=== PATIENT | female | born 1995 ===

== ENCOUNTER 2017-11-04 23:14 | Emergency (ER) | payer BC ==
[2017-11-04 23:23] VITALS: BP 135/87; PULSE 84; RESP 16; TEMP 98.8; O2SAT 99
[2017-11-04 23:42] LABS: HCG,QUALITATIVE URINE NEGATIVE (NEGATIVE)
[2017-11-04 23:45] LABS: SQUAMOUS EPITHIAL 2 /hpf (0-5); URINE BACTERIA FEW (<OCC); URINE BILIRUBIN NEGATIVE (NEGATIVE); URINE BLOOD 3+ (NEGATIVE); URINE CLARITY Hazy (Clear); URINE COLOR Yellow (YELLOW); URINE GLUCOSE (UA) NORMAL (Normal); URINE PROTEIN NEGATIVE (NEGATIVE); URINE UROBILINOGEN NORMAL mg/dL (0.2-1.0)
[2017-11-04 23:49] LABS: URINE LEUKOCYTE ESTERASE 2+ Leu/uL (Negative)
--- NOTE | 2017-11-05 00:03 | C.PDOC ---
History Of Present Illness 22 yo female come in for evaluation of lower abdominal cramping pain associated with mild discomfort on urination and clear vaginal discharges developed since today AM. Otherwise, pt denies fever, chills, sore throat,m cough, abd. pain, N/ V, back pain, hematuria, denies recent unprotected sexual activity, no previous hx of STD. Ambulate to Ed for evaluation, not in any apparent distress. Time Seen by Provider: 11/04/17 23:21 Chief Complaint (Nursing): Female Genitourinary History Per: Patient Onset/Duration Of Symptoms: Gradual Past Medical History Reviewed: Historical Data, Nursing Documentation, Vital Signs Vital Signs: Last Vital Signs Temp 98.8 F 11/04/17 23:19 Pulse 84 11/04/17 23:19 Resp 16 11/04/17 23:19 BP 135/87 11/04/17 23:19 Pulse Ox 99 11/05/17 00:14 - Medical History PMH: Asthma Family History: States: No Known Family Hx - Social History Hx Tobacco Use: No Hx Alcohol Use: No Hx Substance Use: No Review Of Systems Except As Marked, All Systems Reviewed And Found Negative. Constitutional: Negative for: Fever, Chills ENT: Negative for: Throat Pain Respiratory: Negative for: Cough, Shortness of Breath Gastrointestinal: Negative for: Nausea, Vomiting, Abdominal Pain, Diarrhea Genitourinary: Positive for: Dysuria, Vaginal Discharge. Negative for: Frequency, Incontinence, Hematuria, Vaginal Bleeding, Pelvic Pain Musculoskeletal: Negative for: Back Pain Skin: Negative for: Rash Neurological: Negative for: Headache Physical Exam - Physical Exam Appears: Well, Non-toxic, No Acute Distress Skin: Normal Color, Warm, Dry, No Rash Head: Normacephalic Eye(s): bilateral: PERRL Nose: No Flaring, No Discharge Oral Mucosa: Moist, No Drooling Throat: No Erythema, No Drooling Neck: Trachea Midline, Supple Cardiovascular: Rhythm Regular Respiratory: Normal Breath Sounds Gastrointestinal/Abdominal: Soft, Tenderness (mild suprapubic tenderness), No Distention, No Guarding, No Rebound Back: No CVA Tenderness Pelvic: Vaginal Discharge (whithe thick), No Adnexal Tenderness Extremity: Normal ROM, No Deformity, No Swelling Neurological/Psych: Oriented x3, Normal Speech ED Course And Treatment - Laboratory Results Urine POC: Negative O2 Sat by Pulse Oximetry: 99 Pulse Ox Interpretation: Normal Progress Note: On re-evaluation, pt is afebrile, hemodynamicaly stable. Non- toxic. Tolerate Po well in ED. PulsEOx 99% RA. Neck: Supple, (-) meningeal sign . ENT: no acute findings. Lungs: CTA B/L, BS equal B/L. Abd: benig, (-) guarding, (-) rebound. back: (-) CVA tenderness . UA results review (+) WBC, RBC . Pt has clinical findings c/w UTI. Pt advised. ref. to f/u with PMD, [facility] in 2-3 days for re-evaluation. return to ED if any worsening or new changes. Disposition Counseled Patient/Family Regarding: Studies Performed, Diagnosis, Need For Followup, Rx Given - Disposition Referrals: [facility] [Outside] [facility] [Outside] Disposition: HOME/ ROUTINE Disposition Time: 00:03 Condition: STABLE Additional Instructions: Encourage fluids Take medication as prescribed Follow up with PMD, [facility] in 2-3 days for re-evaluation. return to ED if any worsening or new changes. Prescriptions: Fluconazole [Diflucan] 100 mg PO DAILY #3 tab Nitrofurantoin Macrocrystals [Macrobid] 1 cap PO BID #14 cap Instructions: Vulvovaginal Yeast Infection, Urinary Tract Infections in Adults Forms: [facility] (Vietnamese) Print Language: WELSH - Clinical Impression Clinical Impression: UTI (urinary tract infection), Vulvovaginal candidiasis
== END 2017-11-05 00:19 | disposition home or self-care (01) ==
LOC: C.ER 23:14
DX: N39.0 Urinary tract infection, site not specified (principal); B37.3 Candidiasis of vulva and vagina